=== PATIENT | female | born 1985 | race Caucasian/White ===

== ENCOUNTER 2016-05-25 17:10 | Inpatient (IN) | payer OTHER ==
[2016-05-25] VITALS (26 sets, daily range): BP systolic 106–142; BP diastolic 60–90; PULSE 83–176; TEMP 97.9–98.4
[~2016-05-25] VITALS: Ht 162.6 cm; Wt 83.6 kg
[~2016-05-25 17:10] MED LIST: MOTRIN 600600 MG/TAB PO; NO HOME MEDICATIONS; PERCOCET 325 MG1 TA2 PO; PRENATAL; PRENATAL1 TA1 PO
[2016-05-25 18:28] LABS: BASO % 0.3 % (0.0-2.0); EOS # 0.1 (0.0-0.7); GRAN # 4.4 (1.4-6.5); GRAN % 62.9 % (42.2-75.2); LYMPH # 1.9 (1.2-3.4); LYMPH % 27.6 % (20.0-51.0); MEAN CELL VOLUME 77 fl (80.0-100.0); MEAN CORPUSCULAR HGB CONC 32 g/dl (33.0-37.0); MONO # 0.5 (0.1-0.6); MONO % 7.6 % (1.7-9.3); PLATELET COUNT 241 K/mm3 (130-400); RED BLOOD COUNT 4.23 M/mm3 (4.10-5.30); REDCELL DISTRIBUTION WIDTH-CV 15.4 % (11.5-14.5)
[2016-05-25 18:31] LABS: HEMATOCRIT 32.4 % (37.0-47.0); HEMOGLOBIN 10.5 g/dl (12.5-16.0); MEAN CORPUSCULAR HEMOGLOBIN 25 pg (27.0-31.0)
[2016-05-25] MEDS ORDERED: MOTRIN 800800 MG/TAB PO (18:37)
[2016-05-25] MEDS ORDERED: PERCOCET 325 MG1 TA2 PO (18:37)
[2016-05-26 00:20] VITALS: BP 130/79; PULSE 104
[2016-05-26 00:50] VITALS: BP 114/65; PULSE 96; TEMP 98.2
[2016-05-26 01:50] VITALS: BP 133/70; PULSE 100
[2016-05-26 02:05] VITALS: BP 127/80; PULSE 96
[2016-05-26 08:00] VITALS: BP 110/72; PULSE 88; TEMP 98.1
[2016-05-26 19:45] VITALS: BP 118/77; PULSE 94; TEMP 97.3
[2016-05-27 07:27] VITALS: BP 122/81; PULSE 95; TEMP 98
[2016-05-27] MEDS ORDERED: MOTRIN 800800 MG/TAB PO (11:14)
== END 2016-05-27 15:00 | disposition home or self-care (01) | DRG 775 ==
LOC: LDRO 17:10 → LDR 17:31 → OB 05-26 02:15
PROVIDERS: Obstetrics & Gynecology
PROC: 10D07Z6 Extraction of Products of Conception, Vacuum, Via Natural or Artificial Opening (ICD-10-PCS; principal; 2016-05-25)
PROC: 0W8NXZZ Division of Female Perineum, External Approach (ICD-10-PCS; 2016-05-25)
DX: O76 Abnormality in fetal heart rate and rhythm complicating labor and delivery (principal); O75.89 Other specified complications of labor and delivery; O69.1XX0 Labor and delivery complicated by cord around neck, with compression, not applicable or unspecified; Z3A.38 38 weeks gestation of pregnancy; Z37.0 Single live birth
CPT/HCPCS: J2590; J7120

== ENCOUNTER 2016-06-05 18:33 | Day surgery (SDC) | payer OTHER ==
[~2016-06-05] VITALS: Ht 162.6 cm; Wt 72.7 kg
[~2016-06-05 18:33] MED LIST changes: +MOTRIN 800800 MG/TAB PO
[2016-06-05] MEDS ORDERED: COLACE 100100 MG/CAP PO (18:50)
[2016-06-05 19:31] LABS: BASO # 0.1 (0.0-0.2); BASO % 0.4 % (0.0-2.0); EOS # 0.2 (0.0-0.7); EOS % 1.7 % (0-4.0); GRAN # 8.8 (1.4-6.5); GRAN % 73.1 % (42.2-75.2); LYMPH # 2.4 (1.2-3.4); LYMPH % 20.2 % (20.0-51.0); MEAN CELL VOLUME 79 fl (80.0-100.0); MEAN CORPUSCULAR HGB CONC 31 g/dl (33.0-37.0); MEAN PLATELET VOLUME 10.1 fl (7.4-10.4); MONO # 0.5 (0.1-0.6); MONO % 4.2 % (1.7-9.3); PLATELET COUNT 355 K/mm3 (130-400); REDCELL DISTRIBUTION WIDTH-CV 16.5 % (11.5-14.5)
[2016-06-05 19:32] LABS: HEMATOCRIT 30.6 % (37.0-47.0); HEMOGLOBIN 9.6 g/dl (12.5-16.0); MEAN CORPUSCULAR HEMOGLOBIN 25 pg (27.0-31.0)
[2016-06-05 19:33] LABS: PROTHROMBIN TIME 11.1 SECONDS (9.7-12.8)
[2016-06-05 19:36] LABS: PARTIAL THROMBOPLASTIN TIME 31.6 SECONDS (26.0-37.0)
[2016-06-05 19:39] LABS: PH 5 (5-8); SQUAMOUS EPITHELIAL 0-2 /hpf; URINE APPEARANCE Clear; URINE BACTERIA None Seen /hpf; URINE BILIRUBIN Negative (NEGATIVE); URINE BLOOD 2+ (NEGATIVE); URINE COLOR Yellow; URINE GLUCOSE Negative (NEGATIVE); URINE KETONE Negative (NEGATIVE); URINE RBC 20-50 /hpf; URINE UROBILINOGEN Negative (NEGATIVE); URINE WBC 0-2 /hpf
[2016-06-05 19:54] LABS: INFLUENZA B NEGATIVE
[2016-06-05 23:40] VITALS: BP 111/73; PULSE 100; TEMP 98.1
[2016-06-05 23:45] VITALS: BP 108/76; PULSE 95
[2016-06-05 23:50] VITALS: BP 106/72; PULSE 90
[2016-06-05 23:55] VITALS: BP 100/71; PULSE 91
[2016-06-06] VITALS (13 sets, daily range): BP systolic 93–108; BP diastolic 55–71; PULSE 89–104; TEMP 97.8–98.5
[2016-06-06 08:13] LABS: BASO % 0.2 % (0.0-2.0); EOS # 0.1 (0.0-0.7); GRAN # 6.8 (1.4-6.5); GRAN % 74.2 % (42.2-75.2); LYMPH # 1.8 (1.2-3.4); LYMPH % 19.9 % (20.0-51.0); MEAN CELL VOLUME 83 fl (80.0-100.0); MEAN CORPUSCULAR HGB CONC 32 g/dl (33.0-37.0); MEAN PLATELET VOLUME 10.2 fl (7.4-10.4); MONO # 0.4 (0.1-0.6); MONO % 4.3 % (1.7-9.3); RED BLOOD COUNT 2.75 M/mm3 (4.10-5.30); REDCELL DISTRIBUTION WIDTH-CV 17.1 % (11.5-14.5); WHITE BLOOD COUNT 9.2 K/mm3 (4.8-10.8)
[2016-06-06 08:36] LABS: HEMATOCRIT 22.9 % (37.0-47.0); MEAN CORPUSCULAR HEMOGLOBIN 27 pg (27.0-31.0); PLATELET COUNT 252 K/mm3 (130-400)
[2016-06-06 08:40] LABS: HEMOGLOBIN 7.3 g/dl (12.5-16.0)
[2016-06-06] MEDS ORDERED: FERROUS SU325 MG/TAB PO (09:36)
[2016-06-06] MEDS ORDERED: DOXYCYCLINE 10100 MG PO (09:36)
[2016-06-06] MEDS ORDERED: METHERGINE0.2 MG/TAB PO (09:37)
== END 2016-06-06 12:15 | disposition home or self-care (01) ==
LOC: COL.ER 18:33 → SDCO 22:13 → OB 22:13 → COL.ER 22:13 → OB 06-06 12:15 → SDCO 06-06 12:15
PROVIDERS: Emergency Medicine; Obstetrics & Gynecology
DX: O72.0 Third-stage hemorrhage (principal); D64.9 Anemia, unspecified; I95.9 Hypotension, unspecified; I97.89 Other postprocedural complications and disorders of the circulatory system, not elsewhere classified; R00.0 Tachycardia, unspecified
CPT/HCPCS: OP; J0690; J1885; J2210; J2405; J2704; J3010; J7030; J7120; P9016

== ENCOUNTER → 2016-11-08 | Outpatient (CLI) | payer BC ==
[~2016-11-08] MED LIST changes: +COLACE 100100 MG/CAP PO; +DOXYCYCLINE 10100 MG PO; +FERROUS SU325 MG/TAB PO; +METHERGINE0.2 MG/TAB PO
== END ==
LOC: COL.RAD 12:39
DX: S80.02XA Contusion of left knee, initial encounter (principal); M25.462 Effusion, left knee

== ENCOUNTER 2019-05-21 10:13 | Inpatient (IN) | payer BC ==
[~2019-05-21] VITALS: Ht 162.6 cm; Wt 91.4 kg
[2019-05-24] VITALS (62 sets, daily range): BP systolic 97–140; BP diastolic 55–92; PULSE 58–142; TEMP 97.7–102.5
--- NOTE | 2019-05-24 07:20 | NUR ---
Patient ambulatory to R4 with for induction of labor. She is a G5L2 at 39.5 weeks gestation. Her was positive for influenza on 05/19 and he reports that he has been without fever or symptoms for 48 hours. Patient was treated with tamiflu. Patient changed into gown, wedged left in bed. EFMs explained and applied. FHR 130 bpm and reactive. Irregular contractions. HR elevated at 121 bpm. Assessment completed. Patient reports good movement and denies leaking of fluid or vaginal bleeding. Consents signed. Plan of care reviewed. 0745 IV started in right hand with labs drawn from site, LR infusing per protocol. 0750 Pitocin started at 2mu per orders.
[2019-05-24 08:02] LABS: BASO % 0.4 % (0.0-2.0); EOS # 0.1 (0.0-0.7); EOS % 1.1 % (0-4.0); GRAN # 2.5 (1.4-6.5); GRAN % 54.6 % (42.2-75.2); HEMOGLOBIN 10.7 g/dl (12.5-16.0); LYMPH # 1.8 (1.2-3.4); LYMPH % 39.4 % (20.0-51.0); MEAN CELL VOLUME 80 fl (80.0-100.0); MEAN CORPUSCULAR HEMOGLOBIN 25 pg (27.0-31.0); MEAN CORPUSCULAR HGB CONC 31 g/dl (33.0-37.0); MEAN PLATELET VOLUME 10.6 fl (7.4-10.4); MONO # 0.2 (0.1-0.6); MONO % 4.3 % (1.7-9.3); PLATELET COUNT 247 K/mm3 (130-400); RED BLOOD COUNT 4.32 M/mm3 (4.10-5.30); REDCELL DISTRIBUTION WIDTH-CV 16.4 % (11.5-14.5)
[2019-05-24 08:03] LABS: HEMATOCRIT 34.6 % (37.0-47.0)
--- NOTE | 2019-05-24 09:45 | NUR ---
Dr. Chris on unit, reviews FHR tracing, to patient room, bedside sono confirms vertex, SVE /.
--- NOTE | 2019-05-24 12:15 | NUR ---
Dr. Chris to room, reviews FHR tracing, SVE 3-4/50/-3, AROM and scalp electrode placement, scant amount of fluid noted. Plan of care reviewed.
--- NOTE | 2019-05-24 12:55 | NUR ---
Patient requesting epidural, IVF bolus started, TELEPHONE INSTALLER notified.
--- NOTE | 2019-05-24 13:06 | NUR ---
Gloria, CLERICAL WAREHOUSE WORKER to room to place epidural. Patient sits upright on the edge of the bed. Single shot at 1306, see anesthesia record for details of procedure.
--- NOTE | 2019-05-24 13:35 | NUR ---
Patient calls out after feeling a large gush of fluid. SVE 4-5/75/-2 with moderate amount of clear fluid noted with exam.
--- NOTE | 2019-05-24 16:15 | NUR ---
Dr. Chris to room, reviews FHR tracing, SVE /-2, large amount of clear fluid noted with exam.
--- NOTE | 2019-05-24 18:00 | NUR ---
Recurrent early FHR decelerations noted, Dr. Chris on unit and aware. Patient turned from high left to high right side, peanut ball between legs.
--- NOTE | 2019-05-24 18:23 | NUR ---
FHT's with repetive early decels to 100's. Dr Chris continues on unit. Into pt room, SVE as noted. Turned to [employer]owlers, pitocin gtt to 15mu/min.
--- NOTE | 2019-05-24 20:20 | NUR ---
Pt feeling increased pressure/discomfort despite having pushed epidural PROFESSIONAL BASS FISHERMAN button twice. SVE as noted ansthesia notified to come give extra dose, see anesthesia record.
--- NOTE | 2019-05-24 21:05 | NUR ---
Dr Chris into room, SVE as noted. To WL.
--- NOTE | 2019-05-24 21:35 | NUR ---
Dr Chris [facility] [facility] [place]. Pushing instructions given.
--- NOTE | 2019-05-24 23:05 | NUR ---
Tylenol 1000mg po.
--- NOTE | 2019-05-24 23:20 | NUR ---
Dr Chris into room. Discusses fever, updated plan of care.
--- NOTE | 2019-05-24 23:50 | NUR ---
Dr Chris into room. Discusses minimal progress with pushing, tachycardia, Maternal fever, [place]. Reviews information on attempting vacuum assisted delivery risks/benefits. Questions invied and answered. Pt tearful. loving and supportive.
[2019-05-25] VITALS (19 sets, daily range): BP systolic 101–142; BP diastolic 57–94; PULSE 63–121; TEMP 98.4–100
--- NOTE | 2019-05-25 | NUR ---
PITOCIN GTT OFF. 0008 To C/S room.
[2019-05-25 06:53] LABS: BASO % 0.2 % (0.0-2.0); GRAN # 10.1 (1.4-6.5); GRAN % 83.2 % (42.2-75.2); HEMOGLOBIN 10.5 g/dl (12.5-16.0); LYMPH # 1.5 (1.2-3.4); LYMPH % 12.7 % (20.0-51.0); MEAN CELL VOLUME 79 fl (80.0-100.0); MEAN CORPUSCULAR HEMOGLOBIN 25 pg (27.0-31.0); MEAN CORPUSCULAR HGB CONC 32 g/dl (33.0-37.0); MEAN PLATELET VOLUME 10.8 fl (7.4-10.4); MONO # 0.4 (0.1-0.6); MONO % 3.5 % (1.7-9.3); PLATELET COUNT 235 K/mm3 (130-400); RED BLOOD COUNT 4.18 M/mm3 (4.10-5.30); REDCELL DISTRIBUTION WIDTH-CV 16.4 % (11.5-14.5)
[2019-05-25 06:54] LABS: HEMATOCRIT 32.8 % (37.0-47.0)
[2019-05-25 07:04] LABS: ALBUMIN 2.7 gm/dL (3.5-5.0); BILIRUBIN,TOTAL 1.3 mg/dL (0.0-1.0); CALCIUM 8.5 mg/dL (8.4-10.2); CREATININE, serum 0.64 (0.52-1.25); POTASSIUM 4.2 mmol/L (3.4-5.0); TOTAL PROTEIN 5.8 gm/dL (6.4-8.2)
[2019-05-25 08:00] LABS: COLLECTION METHOD CATHETER
[2019-05-25 08:16] LABS: PH 6 (5-8); SQUAMOUS EPITHELIAL 0-2 /hpf; URINE APPEARANCE Clear; URINE BACTERIA None Seen /hpf; URINE BILIRUBIN Negative (NEGATIVE); URINE BLOOD 3+ (NEGATIVE); URINE COLOR Yellow; URINE GLUCOSE Negative (NEGATIVE); URINE KETONE Negative (NEGATIVE); URINE LEUKOCYTE ESTERASE Negative (NEGATIVE); URINE NITRATE Negative (NEGATIVE); URINE PROTEIN(semi-quant) Negative (NEGATIVE); URINE UROBILINOGEN Negative (NEGATIVE); URINE WBC 0-2 /hpf
--- NOTE | 2019-05-25 10:40 | NUR ---
Initial visit; Parents thanked Merchandise Flow Manager for offering congratulations and God's blessings for the of their son. Merchandise Flow Manager thanked them for choosing our hospital.
--- NOTE | 2019-05-25 13:41 | NUR ---
1245 PT DANGLED ON EDGE OF BED BEFORE WALKING TO BATHROOM WITH RN BY SIDE. PT TOLERATED WALK WELL. PT SAT ON TOILET WHILE RN REMOVED CASTELLANO. PERINEUM CLEANED, MESH PANTS AND NEW ICE PACK APPLIED. PT AMBULATED BACK TO BED AT THIS TIME.
[2019-05-26 07:45] VITALS: BP 108/57; PULSE 89; TEMP 97.9
[2019-05-26 16:05] VITALS: BP 117/71; PULSE 83; TEMP 98.3
[2019-05-26 20:48] VITALS: BP 112/60; PULSE 91; TEMP 97.7
[2019-05-27 07:15] VITALS: BP 116/75; PULSE 83; TEMP 98
[2019-05-27] MEDS ORDERED: PERCOCET 325 MG1 TA2 PO (08:47)
[2019-05-27] MEDS ORDERED: MOTRIN 800800 MG/TAB PO (08:47)
--- NOTE | 2019-05-27 12:12 | NUR ---
1140 DISCHARGE INSTRUCTIONS REVIEWED WITH PATIENT. PATIENT VERBALIZED UNDERSTANDING. 1145 PATIENT LEFT AMBULATORY IN NO APPARENT DISTRESS AND ACCOMPANIED BY SPOUSE AND THIS RN. ALL PERSONAL BELONGINGS GATHERED FROM PATIENT ROOM.
== END 2019-05-27 11:45 | disposition home or self-care (01) | DRG 786 ==
LOC: LDR 10:13 → OB 05-25 02:35
PROVIDERS: ADMIT Student in an Organized Health Care Education/Training Program
PROC: 10D00Z1 Extraction of Products of Conception, Low, Open Approach (ICD-10-PCS; principal; 2019-05-25)
DX: O9A.12 Malignant neoplasm complicating childbirth (principal); O41.1230 Chorioamnionitis, third trimester, not applicable or unspecified; O76 Abnormality in fetal heart rate and rhythm complicating labor and delivery; O62.1 Secondary uterine inertia; C44.90 Unspecified malignant neoplasm of skin, unspecified; Z3A.39 39 weeks gestation of pregnancy; Z37.0 Single live birth
CPT/HCPCS: J0290; J0690; J1580; J1885; J2210; J2370; J2400; J2405; J2590; J2795; J3010; J7120